=== PATIENT | female | born 1995 | race Caucasian/White ===

== ENCOUNTER 2022-01-06 14:59 | Emergency (ER) | payer BC ==
[~2022-01-06] VITALS: Ht 167.6 cm; Wt 129.3 kg
--- NOTE | 2022-01-06 15:20 | NUR ---
BIBFRIEND C/O headache, nausea on and off x 1 month, headache worst since last night. AMBULATORY, PLACED ON BED, AAOX4.
--- NOTE | 2022-01-06 15:45 | NUR ---
established IV line at left hand 20g infusing.
[2022-01-06] MEDS ORDERED: METOCLOPRAMIDE HCL 10 MG/2 ML VIAL IV ONE (16:00)
[2022-01-06] MEDS ORDERED: IV NS 0.9% 1,000 ML BAG IV ONE (16:00)
[2022-01-06] MEDS ORDERED: KETOROLAC TROMETHAMINE INJ 30 MG/ML VIAL IV ONE (16:00)
[2022-01-06] MEDS ORDERED: diphenhydrAMINE HCL 50 MG/ML VIAL IV ONE (16:00)
[2022-01-06] MEDS ORDERED: KETOROLAC TROMETHAMINE INJ 30 MG/ML VIAL ONE (16:20)
[2022-01-06] MEDS ORDERED: METO-295 PO (17:52)
--- NOTE | 2022-01-06 18:02 | NUR ---
IV removed. Catheter intact and site benign. Pressure and 4x4 applied to site. No bleeding noted.Patient discharged to home in stable condition. Written and verbal after care instructions given. Patient verbalizes understanding of instruction.
[2022-01-06 18:04] VITALS: BP 120/75
== END 2022-01-06 18:02 | disposition home or self-care (01) ==
LOC: ER 15:06
DX: G43.909 Migraine, unspecified, not intractable, without status migrainosus (principal)
CPT/HCPCS: 99284; 96374; 96375; 96361; Q0163; J2765; J1885; J7030